=== PATIENT | female | born 1975 | race Caucasian/White ===

== ENCOUNTER 2021-11-04 21:19 | Emergency (ER) | payer SELFPAY ==
[~2021-11-04] VITALS: Ht 175.3 cm; Wt 56.7 kg
[~2021-11-04 21:19] MED LIST: NO MEDS
[2021-11-04 21:32] VITALS: BP 133/65
--- NOTE | 2021-11-04 22:19 | NUR ---
Patient ambulated to bed 5.
--- NOTE | 2021-11-04 22:31 | NUR ---
DR CHAVEZ EXAMINING PT
[2021-11-04] MEDS ORDERED: LIDOCAINE MPF 1% 10 MG/ML VIAL INJ ONE (22:35)
[2021-11-04] MEDS ORDERED: BACITRACIN OINT 500 UNITS/GM PKT TP ONE (22:35)
--- NOTE | 2021-11-04 22:49 | NUR ---
[facility] AT [facility]
--- NOTE | 2021-11-04 22:54 | NUR ---
46/F BIB SELF C/C LAC ON LEFT HAND S/P FALL. CARIN STATED THAT SHE WAS RUNNING ON A TRAIL AND FELL, LANDED ON HER HANDS AND LEFT KNEE. PER PATIENT PAIN IS 10/10 AND SHARP. PATIENT HAS A LAC ON LEFT HAND , ABRASIONS ON RIGHT, AND LEFT KNEE. AREA IS RED AND HAS DRY BLOOD. RR APPEAR EVEN AND UNLABORED. RR APPEAR EVEN AND UNLABORED. PATIENT ON BED. BED LOW AND LOCKED. ALL NEEDS MET DENIES PMHX, RX NKA
--- NOTE | 2021-11-04 23:14 | NUR ---
ERMD AT BEDSIDE
--- NOTE | 2021-11-04 23:51 | NUR ---
TDAP VACCINE CONSENT SIGN
[2021-11-05] MEDS ORDERED: cephALEXin 500 MG CAP PO ONE (00:50)
[2021-11-05] MEDS ORDERED: BACITRACIN OINT 500 UNITS/GM PKT TP ONE (00:50)
[2021-11-05] MEDS ORDERED: HYDROcodone/APAP 5/325 MG 1 TAB TAB PO ONE (00:50)
--- NOTE | 2021-11-05 00:50 | NUR ---
Patient being evaluated by physician at bedside.
--- NOTE | 2021-11-05 01:02 | NUR ---
MED GIVEN ORDERED FOR 10/10 LEFT HAND PAIN.
[2021-11-05] MEDS ORDERED: BACI1PAC6 TP (01:06)
[2021-11-05] MEDS ORDERED: CEPH-588 PO (01:06)
[2021-11-05 01:17] VITALS: BP 125/68
--- NOTE | 2021-11-05 01:17 | NUR ---
Patient discharged with v/s stable. Written and verbal after care instructions given LACERATION and explained. Patient alert, oriented and verbalized understanding of instructions. Ambulatory with steady gait. All questions addressed prior to discharge. ID band removed. Patient advised to follow up with PMD. Rx of BACITRACIN AND KEFLEX given.
--- NOTE | 2021-11-05 01:37 | NUR ---
The patient's care was reviewed and supervised by Radha Felipe RN.
== END 2021-11-05 01:17 | disposition home or self-care (01) ==
LOC: MED 21:19
DX: S61.412A Laceration without foreign body of left hand, initial encounter (principal); S80.211A Abrasion, right knee, initial encounter; Z79.899 Other long term (current) drug therapy; W19.XXXA Unspecified fall, initial encounter; Y93.89 Activity, other specified; Y92.89 Other specified places as the place of occurrence of the external cause; Y99.8 Other external cause status
CPT/HCPCS: 12002; 73130; 90471; 90715; 99284; J2001

== ENCOUNTER 2021-11-09 17:29 | Emergency (ER) | payer SELFPAY ==
[~2021-11-09 17:29] MED LIST changes: +BACI1PAC6 TP; +CEPH-588 PO
--- NOTE | 2021-11-09 17:44 | NUR ---
CALLED X 1. NO SHOW.
--- NOTE | 2021-11-09 17:51 | NUR ---
CALLED PT IN LOBBY NO RESPONSE
--- NOTE | 2021-11-09 17:53 | NUR ---
CALLED PT NO RESPONSE
--- NOTE | 2021-11-09 17:54 | NUR ---
PATIENT LEFT WITHOUT BEING SEEN BY . NO FURTHER CARE PROVIDED FOR PATIENT.
== END 2021-11-09 17:54 | disposition left against medical advice (07) ==
LOC: MED 17:29
DX: Z53.21 Procedure and treatment not carried out due to patient leaving prior to being seen by health care provider (principal)

== ENCOUNTER 2021-11-09 19:19 | Emergency (ER) | payer SELFPAY ==
[~2021-11-09] VITALS: Ht 157.5 cm; Wt 56.2 kg
[2021-11-09 19:30] VITALS: BP 128/64
--- NOTE | 2021-11-09 19:33 | NUR ---
TO LOBBY A/W BED AMBULATORY
--- NOTE | 2021-11-09 20:52 | NUR ---
Dr. Hirsch examining patient.
--- NOTE | 2021-11-09 21:40 | NUR ---
Dr. Ness explained treatment plans.
[2021-11-09 22:01] VITALS: BP 128/64
--- NOTE | 2021-11-09 22:01 | NUR ---
Patient discharged with v/s stable. Written and verbal after care instructions given and explained. Patient verbalized understanding. Ambulatory with steady gait. All questions addressed prior to discharge. Advised to follow up with PMD.
== END 2021-11-09 22:01 | disposition home or self-care (01) ==
LOC: MED 19:19
DX: S61.412D Laceration without foreign body of left hand, subsequent encounter (principal); Z48.00 Encounter for change or removal of nonsurgical wound dressing; X58.XXXD Exposure to other specified factors, subsequent encounter
CPT/HCPCS: 99283

== ENCOUNTER 2021-11-12 18:09 | Emergency (ER) | payer SELFPAY ==
[~2021-11-12] VITALS: Ht 157.5 cm; Wt 56.2 kg
[2021-11-12 18:14] VITALS: BP 135/82
--- NOTE | 2021-11-12 20:05 | NUR ---
Dr. Sweeney examining patient.
--- NOTE | 2021-11-12 20:07 | NUR ---
Dr. Sweeney removed stitches, patient tolerated well,
[2021-11-12 20:16] VITALS: BP 135/82
== END 2021-11-12 20:17 | disposition home or self-care (01) ==
LOC: MED 18:09
DX: S61.412D Laceration without foreign body of left hand, subsequent encounter (principal); Z48.02 Encounter for removal of sutures; X58.XXXD Exposure to other specified factors, subsequent encounter
CPT/HCPCS: 99281